=== PATIENT | female | born 1995 | race Caucasian/White ===

== ENCOUNTER 2018-08-09 17:48 | Emergency (ER) | payer BC ==
[2018-08-09 18:27] LABS: ABS Basophils 0 10^3/ul (0-0.2); ABS Eosinophils 0 10^3/ul (0-0.6); ABS Monocytes 0.6 10^3/ul (0-0.8); ABS Neutrophils 8.3 10^3/ul (1.5-7.7); ABS Nucleated RBC 0 10^3/ul; Eosinophil % 0.4 % (0-6); Hematocrit 42 % (35-47); Hemoglobin 14.4 g/dl (12.0-16.0); Lymphocyte % 18.1 % (25-47); Mean Corpuscular HGB Conc 34 g/dl (31-36); Mean Corpuscular Hemoglobin 31 pg (27-31); Mean Corpuscular Volume 89 fL (80-97); Mean Platelet Volume 8.7 um3 (7.4-10.4); Nucleated Red Blood Cells % 0.1; Platelet Count 202 10^3/ul (150-450); Red Blood Count 4.73 10^6/ul (4.00-5.40); Red Cell Distribution Width 13 % (10.5-15); White Blood Count 10.9 10^3/ul (3.5-10.8)
[2018-08-09 18:45] LABS: EGFR Non-African American 120.4 (>60)
[2018-08-09 18:50] LABS: INR 1.02 (0.77-1.02)
[2018-08-09] MEDS ORDERED: LORazepam TAB(*) 1 MG PO ONE (18:58)
--- NOTE | 2018-08-09 18:58 | ED ---
HPI Cardiac - HPI Summary HPI Summary: Patient is a 23 y/o F w/ c/o heart palpitations onsetting a couple of hours ago. She reports that she was at the gym when palpitations onset and describes then as irregular. Patient states that she has anxiety but denies Dx of it. She reports present Sx feel somewhat similar to when she feels anxious. Some chest tightness is also reported in the room. Palpitations have lessened since onset. She notes that she took un-prescribed Adderall yesterday. No PMHx of blood clots in legs/lungs. She denies smoking, alc usage, and other drug usage. Cold Sx are also reported and patient states that she has not been keeping herself hydrated. On triage, pain is denied, nothing is noted to aggravate/alleviate Sx. Home medications and allergies are reviewed. - History of Current Complaint Chief Complaint: EDDysrhythmPalp Stated Complaint: PALPITATIONS Time Seen by Provider: 08/09/18 17:53 Hx Obtained From: Patient Onset/Duration: Started Hours Ago, Still Present Timing: Constant, Lasting Hours Current Severity: None Pain Intensity: 0 Pain Scale Used: 0-10 Numeric - 0/10 Character: Tightness Aggravating Factor(s): Nothing Alleviating Factor(s): Nothing Associated Signs and Symptoms: Positive: Palpitations, Other: - chest tightness , cold Sx, dehydration - Allergy/Home Medications Allergies/Adverse Reactions: Allergies Allergy/AdvReac Type Severity Reaction Status Date / Time No Known Allergies Allergy Verified 08/09/18 19:36 Home Medications: Home Medications NK [No Home Medications Reported] 08/09/18 [History Confirmed 08/09/18] PMH/Surg Hx/FS Hx/Imm Hx Cardiovascular History: Denies: Hx Deep Vein Thrombosis Respiratory History: Denies: Hx Pulmonary Embolism Infectious Disease History: No Infectious Disease History: Denies: Traveled Outside the [place] in Last 30 Days - Family History Known Family History: Negative: Blood Disorder - Social History Alcohol Use: Occasionally Substance Use Type: Reports: Other Substance Use Comment - Amount & Last Used: adderal Smoking Status (MU): Never Smoked Tobacco Review of Systems Positive: Other - cold Sx, dehydration Positive: Palpitations, Other - chest tightness Positive: Anxious All Other Systems Reviewed And Are Negative: Yes Physical Exam - Summary Physical Exam Summary: GENERAL: Patient is a well-developed and nourished female who is lying comfortable in the stretcher. Patient is not in any acute respiratory distress. HEAD AND FACE: Normocephalic EYES: PERRLA, EOMI x 2. EARS: Hearing grossly intact. MOUTH: Oropharynx within normal limits. NECK: Supple, trachea is midline, no adenopathy, no JVD, no carotid bruit. CHEST: Symmetric, no tenderness at palpation LUNGS: Clear to auscultation bilaterally. No wheezing or crackles. CVS: tachycardic, S1 and S2 present, no murmurs or gallops appreciated. ABDOMEN: Soft, non-tender. Bowel sounds are normal. No abdominal abnormal pulsations. EXTREMITIES: Full ROM in all major joints, no edema, no cyanosis or clubbing. NEURO: Alert and oriented x 3. No acute neurological deficits. Speech is normal and follows commands. SKIN: Dry and warm Triage Information Reviewed: Yes Vital Signs On Initial Exam: Initial Vitals Temp Pulse Resp BP Pulse Ox 98.8 F 111 20 149/80 99 08/09/18 17:52 08/09/18 17:52 08/09/18 17:52 08/09/18 17:52 08/09/18 17:52 Vital Signs Reviewed: Yes Diagnostics - Vital Signs Vital Signs Temp Pulse Resp BP Pulse Ox 08/09/18 17:52 98.8 F 111 20 149/80 99 - Laboratory Lab Results: Lab Results 08/09/18 08/09/18 08/09/18 Range/Units 18:20 18:20 18:20 WBC 10.9 H (3.5-10.8) 10^3/ul RBC 4.73 (4.00-5.40) 10^6/ul Hgb 14.4 (12.0-16.0) g/dl Hct 42 (35-47) % MCV 89 (80-97) fL MCH 31 (27-31) pg MCHC 34 (31-36) g/dl RDW 13 (10.5-15) % Plt Count 202 (150-450) 10^3/ul MPV 8.7 (7.4-10.4) um3 Neut % (Auto) 75.8 (38-83) % Lymph % (Auto) 18.1 L (25-47) % Stanton % (Auto) 5.4 (0-7) % Eos % (Auto) 0.4 (0-6) % Baso % (Auto) 0.3 (0-2) % Absolute Neuts (auto) 8.3 H (1.5-7.7) 10^3/ul Absolute Lymphs (auto) 2.0 (1.0-4.8) 10^3/ul Absolute Monos (auto) 0.6 (0-0.8) 10^3/ul Absolute Eos (auto) 0 (0-0.6) 10^3/ul Absolute Basos (auto) 0 (0-0.2) 10^3/ul Absolute Nucleated RBC 0 10^3/ul Nucleated RBC % 0.1 INR (Anticoag Therapy) (0.77-1.02) APTT (26.0-36.3) seconds D-Dimer, Quantitative (Less Than 230) ng/mL Sodium 137 (135-145) mmol/L Potassium 3.4 L (3.5-5.0) mmol/L Chloride 106 (101-111) mmol/L Carbon Dioxide 24 (22-32) mmol/L Anion Gap 7 (2-11) mmol/L BUN 12 (6-24) mg/dL Creatinine 0.62 (0.51-0.95) mg/dL Est GFR ( Amer) 145.6 (>60) Est GFR (Non-Af Amer) 120.4 (>60) BUN/Creatinine Ratio 19.4 (8-20) Glucose 99 (70-100) mg/dL Lactic Acid 1.1 (0.5-2.0) mmol/L Calcium 9.2 (8.6-10.3) mg/dL Magnesium 2.0 (1.9-2.7) mg/dL Total Bilirubin 0.50 (0.2-1.0) mg/dL AST 16 (13-39) U/L ALT 7 (7-52) U/L Alkaline Phosphatase 62 (34-104) U/L Troponin I 0.00 (<0.04) ng/mL Total Protein 7.1 (6.4-8.9) g/dL Albumin 4.5 (3.2-5.2) g/dL Globulin 2.6 (2-4) g/dL Albumin/Globulin Ratio 1.7 (1-3) TSH Pending Thyroxine (T4) Pending Beta HCG, Quant Pending 08/09/18 Range/Units 18:20 WBC (3.5-10.8) 10^3/ul RBC (4.00-5.40) 10^6/ul Hgb (12.0-16.0) g/dl Hct (35-47) % MCV (80-97) fL MCH (27-31) pg MCHC (31-36) g/dl RDW (10.5-15) % Plt Count (150-450) 10^3/ul MPV (7.4-10.4) um3 Neut % (Auto) (38-83) % Lymph % (Auto) (25-47) % Stanton % (Auto) (0-7) % Eos % (Auto) (0-6) % Baso % (Auto) (0-2) % Absolute Neuts (auto) (1.5-7.7) 10^3/ul Absolute Lymphs (auto) (1.0-4.8) 10^3/ul Absolute Monos (auto) (0-0.8) 10^3/ul Absolute Eos (auto) (0-0.6) 10^3/ul Absolute Basos (auto) (0-0.2) 10^3/ul Absolute Nucleated RBC 10^3/ul Nucleated RBC % INR (Anticoag Therapy) 1.02 (0.77-1.02) APTT 32.4 (26.0-36.3) seconds D-Dimer, Quantitative < 200 (Less Than 230) ng/mL Sodium (135-145) mmol/L Potassium (3.5-5.0) mmol/L Chloride (101-111) mmol/L Carbon Dioxide (22-32) mmol/L Anion Gap (2-11) mmol/L BUN (6-24) mg/dL Creatinine (0.51-0.95) mg/dL Est GFR ( Amer) (>60) Est GFR (Non-Af Amer) (>60) BUN/Creatinine Ratio (8-20) Glucose (70-100) mg/dL Lactic Acid (0.5-2.0) mmol/L Calcium (8.6-10.3) mg/dL Magnesium (1.9-2.7) mg/dL Total Bilirubin (0.2-1.0) mg/dL AST (13-39) U/L ALT (7-52) U/L Alkaline Phosphatase (34-104) U/L Troponin I (<0.04) ng/mL Total Protein (6.4-8.9) g/dL Albumin (3.2-5.2) g/dL Globulin (2-4) g/dL Albumin/Globulin Ratio (1-3) TSH Thyroxine (T4) Beta HCG, Quant Result Diagrams: 08/09/18 18:20 08/09/18 18:20 Lab Statement: Any lab studies that have been ordered have been reviewed, and results considered in the medical decision making process. - Radiology CXR Xray Interpretation: No Acute Changes Radiology Interpretation Completed By: ED Physician - no acute process, pending official report - EKG 1840 Cardiac Rate: Tachycardia - rate of 105 bpm EKG Rhythm: Sinus Tachycardia Ectopy: PACs Re-Evaluation - Re-Evaluation First Eval Re-Evaluation Time: 19:43 Change: Improved Comment: Discussed results with patient and patient reports feeling better. Patient is hemodynamically stable and safe for discharge. Strict return precautions given and patient will otherwise follow up with PCP Disposition - Course Course Of Treatment: Patient is a 23 y/o F w/ c/o heart palpitations onsetting a couple of hours ago. She reports that she was at the gym when palpitations onset and describes then as irregular. Patient states that she has anxiety but denies Dx of it. She reports present Sx feel somewhat similar to when she feels anxious. Some chest tightness is also reported in the room. Palpitations have lessened since onset. She notes that she took un-prescribed Adderall yesterday. No PMHx of blood clots in legs/lungs. She denies smoking, alc usage, and other drug usage. Cold Sx are also reported and patient states that she has not been keeping herself hydrated. Physical exam showed patient is tachcardic. During ED course, patient received 0.5 mg Ativan. Labs showed WBC 10.9, d-dimer < 200, lactic 1.1, trop 0, BNP 21, TSH 2.32, T4 9.1, beta HCG <0.6. CXR showed no acute process, EKG showed sinus tachycardia w/ 105 BPM, PACs. 1943 -. Discussed results with patient and patient reports feeling better. Patient is hemodynamically stable and safe for discharge. Strict return precautions given and patient will otherwise follow up with PCP. Dx of palpitaions, adderall usage. - Diagnoses Provider Diagnoses: Palpitations, Substance abuse Discharge - Sign-Out/Discharge Documenting (check all that apply): Patient Departure - discharge - Discharge Plan Condition: Stable Disposition: HOME Patient Education Materials: Heart Palpitations (ED) Referrals: Care [facility] [Outside] - 3 Days Additional Instructions: Follow up with your primary care physician in 1-3 days. RETURN TO THE EMERGENCY DEPARTMENT FOR CHANGING OR WORSENING SYMPTOMS. - Billing Disposition and Condition Condition: STABLE Disposition: Home - Attestation Statements Document Initiated by Scribe: Yes Documenting Scribe: Federico Mcclain Provider For Whom [place] is Documenting (Include Credential): Morales Oliver MD Scribe Attestation: Federico Gutierrez , scribed for Morales Oliver MD on 08/10/18 at 2248. Scribe Documentation Reviewed: Yes Provider Attestation: The documentation as recorded by the Federico alvarado accurately reflects the service I personally performed and the decisions made by me, Morales Oliver MD
[2018-08-09 20:02] VITALS: BP 121/74
--- NOTE | 2018-08-10 07:44 | RAD ---
HISTORY: palpitations COMPARISONS: None VIEWS: 1: frontal AP view of the chest at 6:40 PM FINDINGS: LINES AND TUBES: None. CARDIOMEDIASTINAL SILHOUETTE: The cardiomediastinal silhouette is normal for portable technique. PLEURA: The costophrenic angles are sharp. No pleural abnormalities are noted. LUNG PARENCHYMA: The lungs are clear. ABDOMEN: The upper abdomen is clear. There is no subphrenic gas. BONES AND SOFT TISSUES: No bone or soft tissue abnormalities are noted. IMPRESSION: NO ACTIVE CARDIOPULMONARY DISEASE. R0
== END 2018-08-09 20:01 | disposition home or self-care (01) ==
LOC: ED 17:48
DX: R00.2 Palpitations (principal); F15.10 Other stimulant abuse, uncomplicated
CPT/HCPCS: 36415; 71045; 80053; 83605; 83735; 83880; 84436; 84443; 84484; 84702; 85025; 85379; 85610; 85730; 93005; 99282; A9270-GY